=== PATIENT | male | born 1970 | race Caucasian/White ===

== ENCOUNTER 2016-12-11 10:35 | Emergency (ER) | payer BC, OTHER ==
[2016-12-11 10:43] VITALS: BP 133/91
--- NOTE | 2016-12-11 10:47 | UC ---
Lower Extremity/Ankle HPI - HPI Summary HPI Summary: PT HAS A H/O GOUT AND HAS ATTACKS EVERY 2-3 MONTHS. USUALLY TAKES COLCHICINE AND INDOMETHACIN TOGETHER. LAST ATTACK ABOUT A MONTH AGO HE TOOK PREDNISONE WHICH HE STATES WAS NOT EFFECTIVE. FEELS HIS RIGHT GREAT TOE SWELLING DIDN'T ENTIRELY RESOLVE. PT HAS HAD WORSENING RIGHT GREAT TOE REDNESS AND SWELLING FOR PAST COUPLE OF DAYS. NO TRAUMA, NO FEVER. - History of Current Complaint Chief Complaint: UCLowerExtremity Stated Complaint: FOOT PAIN Time Seen by Provider: 12/11/16 10:46 Hx Obtained From: Patient Onset/Duration: Gradual Onset, Lasting Days, Still Present Severity Initially: Moderate Severity Currently: Moderate Pain Intensity: 8 Pain Scale Used: 0-10 Numeric Aggravating Factor(s): Standing, Ambulation Alleviating Factor(s): Rest Able to Bear Weight: Yes - Allergies/Home Medications Allergies/Adverse Reactions: Allergies Allergy/AdvReac Type Severity Reaction Status Date / Time No Known Allergies Allergy Verified 12/11/16 10:39 PMH/Surg Hx/FS Hx/Imm Hx - Additional Past Medical History Additional PMH: GOUT - Surgical History Surgical History: None - Family History Known Family History: Positive: Hypertension - Social History Alcohol Use: Daily Alcohol Amount: couple beers Substance Use Type: None Smoking Status (MU): Former Smoker Type: Cigars Amount Used/How Often: 2-3/WEEK Length of Time of Smoking/Using Tobacco: A FEW YEARS Review of Systems Constitutional: Negative Skin: Other - REDNESS Respiratory: Negative Cardiovascular: Negative Gastrointestinal: Negative Musculoskeletal: Arthralgia, Decreased ROM, Edema All Other Systems Reviewed And Are Negative: Yes Physical Exam Triage Information Reviewed: Yes Appearance: Well-Appearing, No Pain Distress, Well-Nourished Vital Signs: Initial Vital Signs Temp 98.2 F 12/11/16 10:39 Pulse 78 12/11/16 10:39 Resp 16 12/11/16 10:39 BP 133/91 12/11/16 10:39 Pulse Ox 100 12/11/16 10:39 Vital Signs Reviewed: Yes Eyes: Positive: Conjunctiva Clear ENT: Positive: Hearing grossly normal Neck: Positive: Supple Respiratory: Positive: No respiratory distress, No accessory muscle use Cardiovascular: Positive: Pulses Normal Abdomen Description: Positive: Soft Musculoskeletal: Positive: ROM Limited @ - RIGHT GREAT TOE, Edema @ - RIGHT GREAT TOE, Other: - TTP RIGHT 1ST MTP JOINT. JOINT IS RED AND WARM Neurological: Positive: Alert Psychological: Positive: Age Appropriate Behavior Skin: Negative: rashes Lower Extremity Course/Dx - Course Course Of Treatment: DISCUSSED OPTIONS FOR TREATMENT OF ACUTE GOUT. PT PREFERS TO TAKE INDOMETHACIN AND COLCHICINE. STATES HE USUALLY HAS TO TAKE COLCHICINE FOR SEVERAL DAYS. ADVISED THAT THE RECOMMENDED DOSE FOR ACUTE GOUT WAS 2 TABS X1 AND THEN ANOTHER 1 TAB 1 HOUR LATER X 1. PT WILL DO THIS AND MONITOR HIS SYMPTOMS BUT REQUESTED RX FOR 30 TABS. ALSO ADVISED PT TO F/U WITH HIS PCP TO DISCUSS STARTING DAILY PROPHYLACTIC TREATMENT FOR GOUT GIVEN THE FREQUENCY OF HIS FLARES. PT STATES HE WILL FOLLOW-UP. - Differential Dx/Diagnosis Provider Diagnoses: ACUTE GOUT Discharge - Discharge Plan Condition: Stable Disposition: HOME Prescriptions: Colchicine* [Colcrys*] 0.6 mg PO DAILY #30 tab Indomethacin CAP* [Indocin CAP*] 50 mg PO TID #15 cap Patient Education Materials: Low Purine Diet (ED), Gout (ED) Referrals: Anne Monteiro MD [Medical Doctor] - 2 Weeks Additional Instructions: I RECOMMEND STARTING DAILY PROPHYLACTIC MEDICATION TO PREVENT YOUR RECURRENT GOUTY ATTACKS. YOU NEED PCP FOLLOW-UP AND SHOULD GET SOME BLOOD WORK DONE ONCE YOU ARE SYMPTOM FREE. CALL THE NUMBER BELOW FOR ASSISTANCE IN ESTABLISHING WITH A PCP An additional resource available to assist in finding the appropriate physician for your health care needs is [facility] ([facility]). You may contact them by calling [phone].
== END 2016-12-11 11:07 | disposition home or self-care (01) ==
LOC: UCEAST 10:35
DX: M10.9 Gout, unspecified (principal)
CPT/HCPCS: 99212; G0463

== ENCOUNTER 2018-08-28 09:03 | Emergency (ER) | payer OTHER ==
[2018-08-28 09:16] VITALS: BP 150/95
--- NOTE | 2018-08-28 11:14 | UC ---
Throat Pain/Nasal Alfonso HPI - HPI Summary HPI Summary: Patient presents to urgent care with 4-5 days of progressive nighttime fevers to 100.8. Patient states she's had mild sore throat. Patient states he's also noticed a little bit of pain tracking to his right ear. Patient had some dental work that he thought this may be an infection. Patient states he went to the dentist and edematous that was not infection. Patient denies nausea vomiting. 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 Patient without any rashes. Patient has not taken anything for pain. Patient denies any sinus congestion. Patient states at 3:00 this morning he coughed up some sputum when he looked at those little bit of blood in it so he became concerned. No chest pain or shortness of breath. Patient is not immunocompromised. Patient does not smoke. Patient states he feels like he coughed up stuff from his throat and not from his lungs. Patient's medications reviewed this visit. - History of Current Complaint Chief Complaint: UCGeneralIllness Stated Complaint: FEVER CHILLS SORE THROAT COUGHING UP BLOOD Time Seen by Provider: 08/28/18 10:51 Hx Obtained From: Patient Pain Intensity: 5 - Allergies/Home Medications Allergies/Adverse Reactions: Allergies Allergy/AdvReac Type Severity Reaction Status Date / Time No Known Allergies Allergy Verified 08/28/18 09:16 Home Medications: Home Medications Allopurinol 1 tab PO DAILY 08/28/18 [History Confirmed 08/28/18] PMH/Surg Hx/FS Hx/Imm Hx Previously Healthy: Yes - gout - Surgical History Surgical History: None - Family History Known Family History: Positive: Hypertension, Non-Contributory - Social History Occupation: Employed Full-time Lives: With Family Alcohol Use: Daily Alcohol Amount: couple beers Substance Use Type: None Smoking Status (MU): Former Smoker Type: Cigars Amount Used/How Often: 2-3/WEEK Length of Time of Smoking/Using Tobacco: A FEW YEARS Review of Systems All Other Systems Reviewed And Are Negative: Yes Constitutional: Positive: Fever ENT: Positive: Sore Throat, Ear Ache Respiratory: Positive: Negative Physical Exam - Summary Physical Exam Summary: Vital Signs Reviewed: Yes A+Ox3, no distress Eyes: Conjunctiva Clear, MAYTE. EOM intact and full ENT: Hearing grossly normal TM x 2 visualized. Mild fluid right. no PND clear , mmoist, uvula midline, no exudate, + erythema Neck: Positive: Supple, no lymphadenopathy Respiratory: Positive: No respiratory distress, No accessory muscle use + CTA throughout no w/r Cardiovascular: RRR nl s1, s2 no m/r CBT <2 sec abd soft + BS nt/nd no guarding, no distension Musculoskeletal Exam: ESQUEDA x 4 without difficulty Strength Intact, ROM Intact Neurological: Positive: Alert, + sensation throughout Psychological: Positive: Normal Response To Family Skin: Positive: no rash, no ecchymosis Triage Information Reviewed: Yes Vital Signs: Initial Vital Signs Temp 98.8 F 08/28/18 09:13 Pulse 100 08/28/18 09:13 Resp 20 08/28/18 09:13 BP 150/95 08/28/18 09:13 Pulse Ox 99 08/28/18 09:13 Throat Pain/Nasal Course/Dx - Course Course Of Treatment: Patient presents to urgent care with nighttime fevers. Patient states he has been feeling a little bit rundown mild sore throat mild discomfort tracking towards his right ear. On exam vital signs are stable. Patient does have a little bit of fluid in his right ear. Mild erythema of his throat but no exudate. Strep is positive. Will put patient on amoxicillin. Gargle spit warm salt water. Motrin Tylenol. Secretion precaution. Return precaution. Patient comfortable in agreement with plan. BP elevated - recommend f/u with PCP - Differential Dx/Diagnosis Provider Diagnosis: Strep throat Discharge - Sign-Out/Discharge Documenting (check all that apply): Patient Departure All imaging exams completed and their final reports reviewed: No Studies - Discharge Plan Condition: Stable Disposition: HOME Prescriptions: Amoxicillin PO (*) [Amoxicillin 500 MG CAP*] 500 mg PO Q12H #20 cap Patient Education Materials: Strep Throat (ED) Referrals: Anne Monteiro MD [Primary Care Provider] - Additional Instructions: - Okay to alternate ibuprofen (Advil, Motrin) and Tylenol every 3 hours for pain. Take with food. Do NOT take for more than 4-5 days - Okay to gargle and spit warm salt water every 4 hours as needed for pain - Stay well hydrated - frequent sips of cold fluids will be soothing to your throat (popsicles, jello, ice cream, ice water). Avoid excess caffeine until your symptoms have resolved. -Throat infections are spread by oral secretions - do not share eating or drinking utensils until you symptoms are resolved. Clean items that may get your secretions such as cell phones, ipads, computer mouse, television remotes. Once - Okay to take over the counter decongestant medication (Claritin-D, Rula-D, Zyrtec-D) - Contact your doctor to arrange a follow-up appointment as needed - Billing Disposition and Condition Condition: STABLE Disposition: Home
== END 2018-08-28 11:17 | disposition home or self-care (01) ==
LOC: UCEAST 09:03
DX: J02.0 Streptococcal pharyngitis (principal); Z87.891 Personal history of nicotine dependence
CPT/HCPCS: 87651; 99212; G0463